=== PATIENT | male | born 1960 | race Caucasian/White ===

== ENCOUNTER 2019-03-23 14:22 | Inpatient (IN) | payer OTHER ==
[~2019-03-23] VITALS: Ht 170.2 cm; Wt 91.7 kg
[2019-03-23 15:10] LABS: BASOPHIL % 1.2 % (0-2)
[2019-03-23 15:17] LABS: microscopic required? NO
[2019-03-23 15:30] LABS: CHLORIDE SERUM 105 mmol/L (98-107); GLUCOSE SERUM 97 mg/dL (74-106); POTASSIUM SERUM 4.4 mmol/L (3.5-5.1); SODIUM SERUM 139 mmol/L (136-145)
[2019-03-23 15:31] LABS: ALBUMIN 2.6 g/dL (3.4-5.0); ALKALINE PHOSPHATASE 77 U/L (46-116); ALT/SGPT 16 U/L (16-63); AMYLASE 56 U/L (25-115); AST/SGOT 15 U/L (15-37); BILIRUBIN TOTAL 0.78 mg/dL (0.20-1.00); CALCIUM 8.2 mg/dL (8.5-10.1); GFR1 > 60 mL/min; LIPASE 303 IU/L (73-393); TOTAL PROTEIN, SERUM 8.2 g/dL (6.4-8.2)
[2019-03-23 15:32] LABS: urine erythrocyte NEGATIVE (NEGATIVE)
[2019-03-23 15:45] LABS: PLATELET COUNT 498 x10^3mcL (130-400); RED CELL DISTRIBUTION WIDTH 18.6 % (11.5-14.5)
[2019-03-23 15:55] LABS: rbc morphology (normal/abnorm) ABNORMAL (NORMAL)
[2019-03-23 15:56] LABS: ovalocyte/elliptocyte 1+
[2019-03-23 19:12] LABS: AMPHETAMINE QUAL UR NONE DETECTED (See below)
[2019-03-23 21:51] VITALS: BP 114/62
[2019-03-23 21:55] VITALS: Ht 170.2 cm; Wt 91.7 kg
[2019-03-24 06:14] VITALS: BP 94/54
[2019-03-24 06:51] LABS: BASOPHIL % 0.9 % (0-2)
[2019-03-24 08:14] LABS: PLATELET COUNT 441 x10^3mcL (130-400); RED CELL DISTRIBUTION WIDTH 18.3 % (11.5-14.5)
[2019-03-24 09:10] VITALS: BP 95/54
[2019-03-24 11:14] LABS: rbc morphology (normal/abnorm) ABNORMAL (NORMAL)
[2019-03-24 12:29] VITALS: BP 97/65
[2019-03-24 16:36] VITALS: BP 106/51
[2019-03-24 20:24] VITALS: BP 101/53
[2019-03-25 05:37] VITALS: BP 110/56
[2019-03-25 06:48] LABS: PLATELET COUNT 364 x10^3mcL (130-400)
[2019-03-25 07:16] LABS: RED CELL DISTRIBUTION WIDTH 21.2 % (11.5-14.5)
[2019-03-25 10:58] VITALS: BP 125/69
[2019-03-25 11:03] LABS: ALBUMIN 2.1 g/dL (3.4-5.0); ALKALINE PHOSPHATASE 69 U/L (46-116); ALT/SGPT 14 U/L (16-63); AST/SGOT 14 U/L (15-37); BILIRUBIN TOTAL 0.77 mg/dL (0.20-1.00); CALCIUM 7.5 mg/dL (8.5-10.1); CARBON DIOXIDE 26.7 mmol/L (21-32); CHLORIDE SERUM 108 mmol/L (98-107); CREATININE SERUM 1.2 mg/dL (0.7-1.3); GFR1 > 60 mL/min; GLUCOSE SERUM 176 mg/dL (74-106); POTASSIUM SERUM 4.4 mmol/L (3.5-5.1); SODIUM SERUM 139 mmol/L (136-145); TOTAL PROTEIN, SERUM 5.2 g/dL (6.4-8.2)
[2019-03-25 13:49] VITALS: BP 114/74
[2019-03-25 17:41] VITALS: BP 102/52
[2019-03-25 20:52] VITALS: BP 108/60
[2019-03-26 05:31] VITALS: BP 111/60
[2019-03-26 08:55] VITALS: BP 127/72
[2019-03-26 12:26] VITALS: BP 116/66
[2019-03-26 17:03] VITALS: BP 118/59
[2019-03-26 21:00] VITALS: BP 113/62
[2019-03-27 06:26] VITALS: BP 117/66
[2019-03-27 06:26] LABS: PLATELET COUNT 380 x10^3mcL (130-400)
[2019-03-27 06:30] LABS: RED CELL DISTRIBUTION WIDTH 21.8 % (11.5-14.5)
[2019-03-27 06:55] LABS: CALCIUM 8.1 mg/dL (8.5-10.1); CARBON DIOXIDE 28.3 mmol/L (21-32); CHLORIDE SERUM 106 mmol/L (98-107); CREATININE SERUM 0.9 mg/dL (0.7-1.3); GFR1 > 60 mL/min; GLUCOSE SERUM 112 mg/dL (74-106); POTASSIUM SERUM 3.8 mmol/L (3.5-5.1); SODIUM SERUM 139 mmol/L (136-145)
[2019-03-27 08:56] VITALS: BP 132/65
[2019-03-27 10:55] LABS: BAND NEUTROPHIL 1 % (0-10); BASOPHIL 0 % (0-2); MONOCYTE 8 % (0-7); SEGMENTED NEUTROPHILS 85 % (37-75)
[2019-03-27 10:56] LABS: PLATELET MORPHOLOGY PLATELETS INCREASED; rbc morphology (normal/abnorm) ABNORMAL (NORMAL)
[2019-03-27 11:45] VITALS: BP 121/72
[2019-03-27 16:55] VITALS: BP 120/69
[2019-03-27 20:44] VITALS: BP 111/61
[2019-03-28 05:59] VITALS: BP 134/73
[2019-03-28 07:06] LABS: CALCIUM 7.9 mg/dL (8.5-10.1); CARBON DIOXIDE 27.4 mmol/L (21-32); CHLORIDE SERUM 105 mmol/L (98-107); CREATININE SERUM 0.9 mg/dL (0.7-1.3); GFR1 > 60 mL/min; GLUCOSE SERUM 114 mg/dL (74-106); POTASSIUM SERUM 3.7 mmol/L (3.5-5.1); SODIUM SERUM 138 mmol/L (136-145)
[2019-03-28 07:34] LABS: BASOPHIL % 0.5 % (0-2)
[2019-03-28 07:36] LABS: PLATELET COUNT 411 x10^3mcL (130-400); RED CELL DISTRIBUTION WIDTH 22.1 % (11.5-14.5)
[2019-03-28 08:18] VITALS: BP 123/65
[2019-03-28 12:00] VITALS: BP 118/65
[2019-03-28 16:24] VITALS: BP 129/72
[2019-03-28 20:18] VITALS: BP 120/68
[2019-03-29 06:06] VITALS: BP 120/73
[2019-03-29 07:43] LABS: ALKALINE PHOSPHATASE 67 U/L (46-116); ALT/SGPT 29 U/L (16-63); AST/SGOT 20 U/L (15-37); BILIRUBIN TOTAL 0.9 mg/dL (0.20-1.00); CALCIUM 8.4 mg/dL (8.5-10.1); CARBON DIOXIDE 28.9 mmol/L (21-32); CHLORIDE SERUM 105 mmol/L (98-107); CREATININE SERUM 0.8 mg/dL (0.7-1.3); GFR1 > 60 mL/min; GLUCOSE SERUM 116 mg/dL (74-106); POTASSIUM SERUM 3.5 mmol/L (3.5-5.1); SODIUM SERUM 139 mmol/L (136-145)
[2019-03-29 07:46] LABS: BASOPHIL % 1.9 % (0-2); PLATELET COUNT 358 x10^3mcL (130-400)
[2019-03-29 07:47] LABS: RED CELL DISTRIBUTION WIDTH 22.5 % (11.5-14.5)
[2019-03-29 07:55] LABS: ALBUMIN 1.8 g/dL (3.4-5.0); TOTAL PROTEIN, SERUM 5.5 g/dL (6.4-8.2)
[2019-03-29 08:24] VITALS: BP 157/77
[2019-03-29 12:33] VITALS: BP 136/70
[2019-03-29 16:53] VITALS: BP 121/68
[2019-03-29 20:21] VITALS: BP 119/69
[2019-03-30 05:43] VITALS: BP 123/73
[2019-03-30 07:49] LABS: PLATELET COUNT 413 x10^3mcL (130-400); RED CELL DISTRIBUTION WIDTH 23.3 % (11.5-14.5)
[2019-03-30 08:15] LABS: CALCIUM 8.9 mg/dL (8.5-10.1); CARBON DIOXIDE 26.3 mmol/L (21-32); CHLORIDE SERUM 105 mmol/L (98-107); CREATININE SERUM 0.8 mg/dL (0.7-1.3); GFR1 > 60 mL/min; GLUCOSE SERUM 116 mg/dL (74-106); POTASSIUM SERUM 3.5 mmol/L (3.5-5.1); SODIUM SERUM 137 mmol/L (136-145)
[2019-03-30 09:20] VITALS: BP 124/70
[2019-03-30 10:38] LABS: ATYPICAL LYMPH 1 %; BAND NEUTROPHIL 0 % (0-10); BASOPHIL 0 % (0-2); MONOCYTE 10 % (0-7); SEGMENTED NEUTROPHILS 64 % (37-75)
[2019-03-30 10:39] LABS: PLATELET MORPHOLOGY LARGE PLATELET SEEN; ovalocyte/elliptocyte 1+; rbc morphology (normal/abnorm) ABNORMAL (NORMAL); tear drop cell (dacryocyte) 1+
[2019-03-30 12:41] VITALS: BP 134/68
[2019-03-30 17:52] VITALS: BP 116/64
[2019-03-30 21:10] VITALS: BP 104/71
[2019-03-31 06:17] VITALS: BP 109/58
[2019-03-31 08:00] LABS: PLATELET COUNT 391 x10^3mcL (130-400)
[2019-03-31 08:25] LABS: RED CELL DISTRIBUTION WIDTH 23.2 % (11.5-14.5)
[2019-03-31 09:18] VITALS: BP 121/71
[2019-03-31 10:34] LABS: BAND NEUTROPHIL 0 % (0-10); BASOPHIL 0 % (0-2); MONOCYTE 4 % (0-7); SEGMENTED NEUTROPHILS 87 % (37-75); rbc morphology (normal/abnorm) ABNORMAL (NORMAL)
[2019-03-31 10:35] LABS: PLATELET MORPHOLOGY PLATELETS NORMAL
[2019-03-31 14:14] VITALS: BP 108/57
[2019-03-31 18:10] VITALS: BP 119/65
[2019-03-31 21:15] VITALS: BP 115/65
[2019-04-01 06:14] VITALS: BP 112/59
[2019-04-01 07:17] LABS: CALCIUM 8.2 mg/dL (8.5-10.1); CARBON DIOXIDE 24.3 mmol/L (21-32); CHLORIDE SERUM 105 mmol/L (98-107); CREATININE SERUM 0.9 mg/dL (0.7-1.3); GFR1 > 60 mL/min; GLUCOSE SERUM 92 mg/dL (74-106); POTASSIUM SERUM 3.9 mmol/L (3.5-5.1); SODIUM SERUM 138 mmol/L (136-145)
[2019-04-01 09:45] VITALS: BP 111/67
[2019-04-01 09:54] LABS: PLATELET COUNT 438 x10^3mcL (130-400); RED CELL DISTRIBUTION WIDTH 23.3 % (11.5-14.5)
[2019-04-01 13:14] LABS: BAND NEUTROPHIL 2 % (0-10); BASOPHIL 1 % (0-2); MONOCYTE 11 % (0-7); SEGMENTED NEUTROPHILS 70 % (37-75)
[2019-04-01 13:15] LABS: PLATELET MORPHOLOGY PLATELETS INCREASED; rbc morphology (normal/abnorm) ABNORMAL (NORMAL)
[2019-04-01] MEDS ORDERED: NOR10T PO (13:44)
[2019-04-01 13:48] VITALS: BP 120/65
== END 2019-04-01 15:01 | disposition home health service (06) | DRG 330 ==
LOC: ED 14:22 → MU 20:07
PROVIDERS: Anesthesiology; Emergency Medicine; Internal Medicine; Internal Medicine Pulmonary Disease; Student in an Organized Health Care Education/Training Program; ADMIT Internal Medicine Pulmonary Disease
PROC: 0DBL8ZX Excision of Transverse Colon, Via Natural or Artificial Opening Endoscopic, Diagnostic (ICD-10-PCS; principal; 2019-03-24 12:00)
PROC: 0DTF4ZZ Resection of Right Large Intestine, Percutaneous Endoscopic Approach (ICD-10-PCS; 2019-03-25)
PROC: 0WQF4ZZ Repair Abdominal Wall, Percutaneous Endoscopic Approach (ICD-10-PCS; 2019-03-25)
DX: C18.3 Malignant neoplasm of hepatic flexure (principal); C18.0 Malignant neoplasm of cecum; K57.30 Diverticulosis of large intestine without perforation or abscess without bleeding; K52.9 Noninfective gastroenteritis and colitis, unspecified; D64.9 Anemia, unspecified; K42.9 Umbilical hernia without obstruction or gangrene; R59.0 Localized enlarged lymph nodes; R63.0 Anorexia; Z68.31 Body mass index [BMI] 31.0-31.9, adult
CPT/HCPCS: 45378; 82962; 87804; 88344; 88361; 97116-GP; C9113; G0378; J0330; J0694; J1170; J1200; J1610; J1644; J1956; J2250; J2270; J2310; J2405; J2704; J2710; J3010; J3490; J7030; J7040; J7042; J7120; J7131; P9016; Q0092; Q0162

== ENCOUNTER 2019-06-07 18:51 | Emergency (ER) | payer OTHER ==
[~2019-06-07] VITALS: Ht 170.2 cm; Wt 90.7 kg
[~2019-06-07 18:51] MED LIST: NOR10T PO
[2019-06-07 18:57] VITALS: Ht 170.2 cm; Wt 90.7 kg
[2019-06-07 19:57] VITALS: BP 146/85
== END 2019-06-07 19:57 | disposition home or self-care (01) ==
LOC: ED 18:51
DX: T15.02XA Foreign body in cornea, left eye, initial encounter (principal); Z88.6 Allergy status to analgesic agent; Z88.5 Allergy status to narcotic agent; W45.8XXA Other foreign body or object entering through skin, initial encounter; Y93.89 Activity, other specified; Y92.89 Other specified places as the place of occurrence of the external cause; Y99.8 Other external cause status
CPT/HCPCS: 90715

== ENCOUNTER 2019-06-23 20:47 | Emergency (ER) | payer OTHER ==
[~2019-06-23] VITALS: Ht 167.6 cm; Wt 92.1 kg
[2019-06-23 20:55] VITALS: Ht 167.6 cm; Wt 92.1 kg
[2019-06-23 22:33] VITALS: BP 156/89
== END 2019-06-23 22:33 | disposition home or self-care (01) ==
LOC: ED 20:47
DX: S43.101A Unspecified dislocation of right acromioclavicular joint, initial encounter (principal); Z88.6 Allergy status to analgesic agent; Z98.890 Other specified postprocedural states; V87.8XXA Person injured in other specified noncollision transport accidents involving motor vehicle (traffic), initial encounter; Y93.55 Activity, bike riding; Y92.413 State road as the place of occurrence of the external cause

== ENCOUNTER 2019-07-14 03:54 | Emergency (ER) | payer OTHER ==
[~2019-07-14] VITALS: Ht 175.3 cm; Wt 86.2 kg
[2019-07-14 04:02] VITALS: Ht 175.3 cm; Wt 86.2 kg
[2019-07-14 05:13] VITALS: BP 129/78
== END 2019-07-14 05:13 | disposition home or self-care (01) ==
LOC: ED 03:54
DX: R10.9 Unspecified abdominal pain (principal); R11.2 Nausea with vomiting, unspecified; Z88.5 Allergy status to narcotic agent
CPT/HCPCS: J1885; Q0162

== ENCOUNTER 2019-10-01 09:12 | Emergency (ER) | payer OTHER ==
[2019-10-01 11:08] LABS: ALBUMIN 3.6 g/dL (3.4-5.0); ALKALINE PHOSPHATASE 106 U/L (46-116); ALT/SGPT 25 U/L (16-63); AMYLASE 111 U/L (25-115); AST/SGOT 26 U/L (15-37); BILIRUBIN TOTAL 0.9 mg/dL (0.20-1.00); CALCIUM 9.6 mg/dL (8.5-10.1); CARBON DIOXIDE 30.5 mmol/L (21-32); CHLORIDE SERUM 94 mmol/L (98-107); GFR1 > 60 mL/min; GLUCOSE SERUM 114 mg/dL (74-106); LIPASE 368 IU/L (73-393); POTASSIUM SERUM 3.5 mmol/L (3.5-5.1); SODIUM SERUM 133 mmol/L (136-145)
[2019-10-01 11:46] LABS: BASOPHIL % 4.5 % (0-2); PLATELET COUNT 430 x10^3mcL (130-400); RED CELL DISTRIBUTION WIDTH 17.1 % (11.5-14.5)
[2019-10-01 11:47] LABS: microscopic required? NO
[2019-10-01 12:49] LABS: urine erythrocyte NEGATIVE (NEGATIVE)
[2019-10-01 13:04] VITALS: BP 134/78
[2019-10-01 13:08] LABS: AMPHETAMINE QUAL UR NONE DETECTED (See below)
== END 2019-10-01 13:04 | disposition home or self-care (01) ==
LOC: ED 09:12
PROVIDERS: Emergency Medicine
DX: C18.9 Malignant neoplasm of colon, unspecified (principal)
CPT/HCPCS: J2060; J2270; J2405; J7030; Q9967